=== PATIENT | male | born 1980 | race Caucasian/White ===

== ENCOUNTER → 2022-07-04 | Outpatient (REF) | payer OTHER | LOC: M LABSMT 09:44 | PROVIDERS: ATTEND Urology | DX: Z30.2 Encounter for sterilization (principal) ==

== ENCOUNTER → 2022-09-04 | Outpatient (REF) | payer OTHER ==
[2022-09-04 09:37] LABS: SEMEN APPEARANCE OPAQUE (OPAQUE); SEMEN VISCOSITY LIQUID (LIQUID); SEMEN VOLUME 1.4 ml (2.0-5.0); SEMEN pH 8.5 (7.0-8.0)
[2022-09-04 09:47] LABS: WBC CONCENTRATION >1 M/ml (<=1 M/ml)
== END ==
LOC: M SMT 09:17
PROVIDERS: ATTEND Urology
DX: Z30.2 Encounter for sterilization (principal)

== ENCOUNTER 2024-03-13 19:05 | Observation (INO) | payer OTHER ==
[~2024-03-13] VITALS: Ht 190.5 cm; Wt 94.8 kg
[2024-03-13 19:46] LABS: BASO % 0.4 % (0.0-1.0); EOS # 0.2 10^3/uL (0.0-0.5); EOS % 1.8 % (0.0-3.0); HEMATOCRIT 45.8 % (42.0-52.0); HEMOGLOBIN 15.6 g/dl (13.5-17.5); LYMPH # 2.5 10^3/uL (1.5-5.0); MEAN CORPUSCULAR HEMOGLOBIN 31.7 pg (27.0-33.0); MEAN CORPUSCULAR HGB CONC 34.1 g/dl (32.0-36.5); MEAN CORPUSCULAR VOLUME 93.1 fl (80.0-96.0); MONO # 0.6 10^3/uL (0.0-0.8); MONO % 6.5 % (2.0-8.0); NEUTROPHILS # 5.2 10^3/uL (1.5-8.5); NEUTROPHILS % 61.1 % (36.0-66.0); PLATELET COUNT, AUTOMATED 180 10^3/uL (150-450); RED BLOOD COUNT 4.92 10^6/uL (4.30-6.10); WHITE BLOOD COUNT 8.5 10^3/uL (4.0-10.0)
[2024-03-13 20:18] LABS: BLOOD UREA NITROGEN 15 MG/DL (9-23); CALCIUM LEVEL 9.4 MG/DL (8.5-10.1); CARBON DIOXIDE LEVEL 30 MMOL/L (20-31); CHLORIDE LEVEL 102 MMOL/L (98-107); CK-MB VALUE MASS 1.3 NG/ML (<3.6); CPK CREATINE PHOSPHOKINASE 144 U/L (46-171); CREATININE FOR GFR 0.88 MG/DL (0.70-1.30); GLOMERULAR FILTRATION RATE > 60.0 (>60); GLUCOSE, FASTING 84 MG/DL (60-100); MAGNESIUM LEVEL 2.1 MG/DL (1.8-2.4); POTASSIUM SERUM 4.9 MMOL/L (3.5-5.1); SODIUM LEVEL 141 MMOL/L (136-145)
[2024-03-13 20:20] LABS: THYROID STIMULATING HORMONE 2.734 uIU/ML (0.55-4.78)
[2024-03-13] MEDS: MECLIZINE 25 MG TABLET PO ONE (23:53)
[2024-03-14] MEDS ORDERED: ISOVUE-370 76% 100ML VIAL As Ordered ONE (00:08)
[2024-03-14] MEDS ORDERED: IBUP200T46 PO (02:43)
[2024-03-14] MEDS ORDERED: HOME MED LIST COMPLETE! XX SCH (02:45)
[2024-03-14 04:30] VITALS: BP 140/84; TEMP 97.3; O2SAT 96
[2024-03-14] MEDS: MECLIZINE 25 MG TABLET PO SCH (05:49)
[2024-03-14] MEDS: ENOXAPARIN 30MG/0.3ML SYRINGE (J1650 PER 10MG) SC SCH (08:49)
[2024-03-14] MEDS ORDERED: MECL-86 PO (10:33)
[2024-03-14 12:00] VITALS: BP 124/80; TEMP 97.7; O2SAT 96
== END 2024-03-14 13:54 | disposition home or self-care (01) ==
LOC: M ED 19:05 → M ED INP 19:06 → M MSPAV 03-14 04:35
PROVIDERS: ADMIT Student in an Organized Health Care Education/Training Program; ATTEND Internal Medicine
DX: R42 Dizziness and giddiness (principal); R11.0 Nausea; Z79.899 Other long term (current) drug therapy
CPT/HCPCS: 70450; 70496; 70498; 70551; 80048; 82550; 82553; 83735; 84443; 84484; 85025; 93005; 96372; 97161; 99285; J1650; Q9967

== ENCOUNTER → 2024-04-17 | Outpatient (RCR) | payer OTHER ==
[~2024-04-17] MED LIST: IBUP200T46 PO; MECL-86 PO
== END ==
LOC: M PT 03-23 08:02
PROVIDERS: ATTEND Internal Medicine
DX: R42 Dizziness and giddiness (principal)

== ENCOUNTER 2024-05-08 07:45 | Outpatient (RCR) | payer OTHER | END 2024-05-18 | LOC: M PT 07:45 | PROVIDERS: ATTEND Internal Medicine | DX: R42 Dizziness and giddiness (principal) ==